=== PATIENT | male | born 1980 | race Caucasian/White ===

== ENCOUNTER 2016-10-13 14:54 | Emergency (ER) | payer OTHER ==
[2016-10-13 15:11] VITALS: BP 125/88
--- NOTE | 2016-10-13 15:37 | UC ---
Ear Complaint HPI - HPI Summary HPI Summary: The patient comes in today for: 1. Bilateral ear pain: Right more than left Onset: " a couple days." Palliative/Provocative: Nothing makes it better or worse except some release with blowing nose. Quality: Ache Region: both ears Severity: 5/10 on right. 2-3/10 on the left Time: Constant. Associated symptoms: He has allergies. Rhinitis: clear. Hearing: OK Discharge from ears: None. He states that he will have an itchy nose and sneezing at times. He will have some relief with blowing his nose, but it does not last. 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 Other Cardiovascular History: No heart disease or hypertension Respiratory History: Asthma Other Respiratory History: + asthma, but no P.E. Other GI/ History: Some GERD, but no ulcers or renal disease. Other Neurological History: No seizures or chronic headaches. Other Psychological History: He has some anxiety and bipolar manic depression-- on no Rx. 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 Substance Use Type: Marijuana Substance Use Comment - Amount & Last Used: daily; last used this morning Smoking Status (MU): Heavy Every Day Tobacco Smoker Type: Cigarettes Amount Used/How Often: 1 PPD Length of Time of Smoking/Using Tobacco: 28 Years Have You Smoked in the Last Year: Yes Household Exposure Type: Cigarettes Review of Systems Constitutional: Negative Skin: Negative ENT: Ear Ache Respiratory: Negative Cardiovascular: Negative Gastrointestinal: Negative Genitourinary: Negative All Other Systems Reviewed And Are Negative: Yes Physical Exam Triage Information Reviewed: Yes Appearance: Well-Appearing, No Pain Distress, Well-Nourished Vital Signs: Initial Vital Signs Temp 98.1 F 10/13/16 15:06 Pulse 74 10/13/16 15:06 Resp 16 10/13/16 15:06 BP 125/88 10/13/16 15:06 Pulse Ox 98 10/13/16 15:06 Vital Signs Reviewed: Yes Eyes: Positive: Conjunctiva Clear. Negative: Discharge ENT: Positive: Hearing grossly normal, Other: - No ear canal erythema or redness.. Negative: Pharyngeal erythema, Nasal congestion, Nasal drainage, TM bulging, TM dull, TM red, Tonsillar swelling, Tonsillar exudate Dental: Negative: Gross Decay/Caries @, Dental Fracture @ Neck: Positive: Supple, Nontender, No Lymphadenopathy. Negative: Nuchal Rigidity Respiratory: Positive: Lungs clear, No respiratory distress, No accessory muscle use. Negative: Respiratory distress, Rhonchi, Wheezing Cardiovascular: Positive: RRR, No Murmur Abdomen Description: Positive: Nontender, No Organomegaly, Soft. Negative: Distended, Guarding Musculoskeletal: Positive: Strength Intact, ROM Intact Neurological: Positive: Alert, Muscle Tone Normal Psychological: Positive: Age Appropriate Behavior, Consolable Skin: Negative: rashes, breakdown Ear Complaint Course/Dx - Course Course Of Treatment: Patient told carmel this ears appear normal and due to his history, his diagnosis is eustachian tube dysfunction, bilateral. - Differential Dx/Diagnosis Provider Diagnoses: Eustachian tube dysfunction, bilateral. Allergic rhinitis. GERD. Asthma. Discharge - Discharge Plan Condition: Stable Disposition: HOME Patient Education Materials: Diet for Stomach Ulcers and Gastritis (ED), Gastroesophageal Reflux Disease (ED)
== END 2016-10-13 16:09 | disposition home or self-care (01) ==
LOC: UCCORT 14:54
DX: H69.90 Unspecified Eustachian tube disorder, unspecified ear (principal); J30.9 Allergic rhinitis, unspecified; K21.9 Gastro-esophageal reflux disease without esophagitis; J45.909 Unspecified asthma, uncomplicated; F17.210 Nicotine dependence, cigarettes, uncomplicated
CPT/HCPCS: 99212; G0463

== ENCOUNTER 2018-09-08 10:03 | Emergency (ER) | payer OTHER ==
[2018-09-08 10:29] VITALS: BP 140/94
--- NOTE | 2018-09-08 10:55 | UC ---
Dental HPI - HPI Summary HPI Summary: One year ago he had a dental fracture. Since then there has been pain. As of a few days ago he started to get a "bump" and then swelling of the lip and cheek. NO fever or chills. he has an appt already 09/12 with dentist. - History of Current Complaint Chief Complaint: UCDentalProblem Stated Complaint: DENTAL CONCERN Time Seen by Provider: 09/08/18 10:24 Hx Obtained From: Patient Onset/Duration: Gradual Onset, Lasting Days Severity: Moderate Pain Intensity: 7 Aggravating Factor(s): Chewing, Nothing Alleviating Factor(s): Topical Meds Related History: Swelling - Allergies/Home Medications Allergies/Adverse Reactions: Allergies Allergy/AdvReac Type Severity Reaction Status Date / Time amoxicillin Allergy Hives Verified 09/08/18 10:30 cephalexin [From Keflex] Allergy Hives Verified 09/08/18 10:30 Penicillins Allergy Swelling Verified 09/08/18 10:30 Of Face,Lips,& Throat Home Medications: Home Medications Gabapentin CAP(*) [Neurontin 300 CAP(*)] 300 mg PO BID PRN 09/08/18 [History Confirmed 09/08/18] Naproxen [Naproxen 250 mg tab] 250 mg PO SEE INSTRUCTIONS PRN 09/08/18 [History Confirmed 09/08/18] PMH/Surg Hx/FS Hx/Imm Hx Previously Healthy: No - dental fracture. Other History Of: Negative For: HIV, Hepatitis B, Hepatitis C, Anticoagulant Therapy - Surgical History Surgical History: None - Family History Known Family History: Positive: Cardiac Disease, Hypertension - Social History Alcohol Use: None Alcohol Amount: RECOVERING ETOH--NO ETOH SINCE 2006 Substance Use Type: Other Substance Use Comment - Amount & Last Used: CBD oil Smoking Status (MU): Heavy Every Day Tobacco Smoker Type: Cigarettes Amount Used/How Often: 1 PPD Length of Time of Smoking/Using Tobacco: 28 Years Have You Smoked in the Last Year: Yes Household Exposure Type: Cigarettes Review of Systems All Other Systems Reviewed And Are Negative: Yes ENT: Positive: Other - dental pain. Physical Exam Triage Information Reviewed: Yes Appearance: Well-Appearing, No Pain Distress, Well-Nourished Vital Signs: Initial Vital Signs Temp 98.6 F 09/08/18 10:17 Pulse 63 04/28/19 10:17 Resp 18 09/08/18 10:17 BP 140/94 09/08/18 10:17 Pulse Ox 100 09/08/18 10:17 Vital Signs Reviewed: Yes Eyes: Positive: Conjunctiva Clear ENT: Positive: Pharynx normal, Other - abscess and drainage of an abscess above the right upper inciser. This dooth is decayed and almost gone. Neck exam: Normal Neck: Positive: Supple, Nontender. Negative: No Lymphadenopathy Respiratory: Positive: Lungs clear, Normal breath sounds, No respiratory distress, No accessory muscle use. Negative: Respiratory distress, Decreased breath sounds, Accessory muscle use, Crackles, Rhonchi, Stridor, Wheezing Cardiovascular: Positive: RRR, No Murmur, Pulses Normal Abdomen Description: Positive: Nontender, No Organomegaly, Soft. Negative: Distended, Guarding Musculoskeletal: Positive: Strength Intact, ROM Intact, No Edema Neurological: Positive: Alert, Muscle Tone Normal. Negative: Fatigued Psychological: Positive: Normal Response To Family, Age Appropriate Behavior Skin: Negative: Rashes Dental Complaint Course/Dx - Differential Dx/Diagnosis Provider Diagnosis: Abscess, dental Discharge - Sign-Out/Discharge Documenting (check all that apply): Patient Departure All imaging exams completed and their final reports reviewed: No Studies - Discharge Plan Condition: Good Disposition: HOME Prescriptions: Clindamycin Cap(NF) [Clindamycin Cap 300 mg Cap(NF)] 300 mg PO TID #30 cap Naproxen [Naproxen 500 mg tab] 500 mg PO BID #20 tablet Tramadol HCl 50 mg PO BID #8 tablet MDD 2 Patient Education Materials: Dental Abscess (ED) Referrals: Meg Lainez NP [Primary Care Provider] - Additional Instructions: follow up with your dentist as already scheduled for 09/12. - Billing Disposition and Condition Condition: GOOD Disposition: Home
== END 2018-09-08 10:58 | disposition home or self-care (01) ==
LOC: UCCORT 10:03
DX: K04.7 Periapical abscess without sinus (principal); Z88.0 Allergy status to penicillin; Z88.1 Allergy status to other antibiotic agents; F17.210 Nicotine dependence, cigarettes, uncomplicated
CPT/HCPCS: 99212; G0463

== ENCOUNTER 2018-09-30 16:25 | Emergency (ER) | payer OTHER ==
[2018-09-30 17:38] VITALS: BP 143/84
--- NOTE | 2018-09-30 17:47 | UC ---
Respiratory Complaint HPI - HPI Summary HPI Summary: 38 yo male with less than 48 hour hx of fever/chills/myalgias/cough/nasal congestion/headache/nausea and vomiting Has asthma and has felt wheezy at times no CP or SOB - History of Current Complaint Chief Complaint: UCRespiratory Stated Complaint: COUGH,ACHY,LIGHT HEADED,DIZZY Time Seen by Provider: 09/30/18 17:46 Hx Obtained From: Patient Onset/Duration: Gradual Onset, Lasting Hours Timing: Constant Severity Initially: Mild Severity Currently: Moderate Pain Intensity: 6 Pain Scale Used: 0-10 Numeric Character: Cough: Nonproductive Aggravating Factors: Deep Breaths, Recumbent Position Alleviating Factors: Nothing Associated Signs And Symptoms: Positive: Fever, Chills, Wheezing, Nasal Congestion, Hoarseness - Allergies/Home Medications Allergies/Adverse Reactions: Allergies Allergy/AdvReac Type Severity Reaction Status Date / Time amoxicillin Allergy Hives Verified 09/30/18 17:30 cephalexin [From Keflex] Allergy Hives Verified 09/30/18 17:30 Penicillins Allergy Swelling Verified 09/30/18 17:30 Of Face,Lips,& Throat PMH/Surg Hx/FS Hx/Imm Hx Previously Healthy: Yes Respiratory History: Asthma, Bronchitis, Pneumonia Other History Of: Negative For: HIV, Hepatitis B, Hepatitis C, Anticoagulant Therapy - Surgical History Surgical History: Yes Surgery Procedure, Year, and Place: ENDOSCOPY - Family History Known Family History: Positive: Cardiac Disease, Hypertension - Social History Alcohol Use: None Alcohol Amount: RECOVERING ETOH--NO ETOH SINCE 2006 Substance Use Type: Other Substance Use Comment - Amount & Last Used: CBD oil Smoking Status (MU): Heavy Every Day Tobacco Smoker Type: Cigarettes, eCigarettes Amount Used/How Often: 1/2 PPD Length of Time of Smoking/Using Tobacco: 28 Years Have You Smoked in the Last Year: Yes Household Exposure Type: Cigarettes Review of Systems All Other Systems Reviewed And Are Negative: Yes Constitutional: Positive: Fever, Chills, Fatigue Skin: Positive: Negative Eyes: Positive: Negative ENT: Positive: Nasal Discharge, Sinus Congestion, Sinus Pain/Tenderness Respiratory: Positive: Cough Cardiovascular: Positive: Negative Gastrointestinal: Positive: Negative Genitourinary: Positive: Negative Motor: Positive: Negative Neurovascular: Positive: Negative Musculoskeletal: Positive: Arthralgia, Myalgia Neurological: Positive: Headache Psychological: Positive: Negative Physical Exam Triage Information Reviewed: Yes Completion Of Physical Exam Limited Due To: Altered Mental Status Appearance: Well-Appearing, No Pain Distress, Well-Nourished Vital Signs: Initial Vital Signs Temp 98.7 F 09/30/18 17:31 Pulse 92 09/30/18 17:31 Resp 16 09/30/18 17:31 BP 143/84 09/30/18 17:31 Pulse Ox 100 09/30/18 17:31 Vital Signs Reviewed: Yes Eyes: Positive: Conjunctiva Clear ENT: Positive: Hearing grossly normal, Pharyngeal erythema, Nasal congestion, Nasal drainage, Uvula midline. Negative: Tonsillar swelling, Tonsillar exudate , Trismus, Muffled voice, Hoarse voice, Dental tenderness, Sinus tenderness Dental Exam: Other - upper dentures Neck: Positive: Supple, Nontender, No Lymphadenopathy Respiratory: Positive: No respiratory distress, No accessory muscle use, Wheezing - with forced expiration Cardiovascular: Positive: RRR, No Murmur Musculoskeletal: Positive: ROM Intact, No Edema Neurological: Positive: Alert Psychological Exam: Normal Skin Exam: Normal Diagnostics - Laboratory Lab Results: influenza (-) Respiratory Course/Dx - Differential Dx/Diagnosis Provider Diagnosis: Asthmatic bronchitis Discharge - Sign-Out/Discharge Documenting (check all that apply): Patient Departure All imaging exams completed and their final reports reviewed: No Studies - Discharge Plan Condition: Stable Disposition: HOME Prescriptions: Albuterol HFA INHALER* [Ventolin HFA Inhaler*] 2 puff INH QID #1 mdi Azithromycin TAB* [Zithromax TAB*] 250 mg PO DAILY #6 tab predniSONE [Deltasone 20 MG TAB] 40 mg PO DAILY #10 tab Patient Education Materials: Acute Bronchitis (ED) Referrals: Meg Lainez NP [Primary Care Provider] - 4 Days - Billing Disposition and Condition Condition: STABLE Disposition: Home
[2018-09-30 18:10] LABS: Influenza A Molecular NEGATIVE (Negative); Influenza B Molecular NEGATIVE (Negative)
== END 2018-09-30 18:26 | disposition home or self-care (01) ==
LOC: UCCORT 16:25
DX: J45.909 Unspecified asthma, uncomplicated (principal); F17.210 Nicotine dependence, cigarettes, uncomplicated; Z88.0 Allergy status to penicillin; Z88.1 Allergy status to other antibiotic agents
CPT/HCPCS: 99212; G0463